=== PATIENT | female | born 1960 | race American Indian/Alaskan Native ===

== ENCOUNTER 2017-01-16 12:51 | Emergency (ER) | payer OTHER ==
[2017-01-16 13:05] VITALS: BP 140/82; PULSE 98; RESP 18; TEMP 98.3; O2SAT 98
--- NOTE | 2017-01-16 14:05 | ED PDOC ---
Upper Extremity Pain/Injury Time Seen by Provider: 01/16/17 13:09 Chief Complaint (Nursing): Finger,Hand,&Wrist History Per: Patient History/Exam Limitations: no limitations Onset/Duration Of Symptoms: Days (x 1 week) Additional Complaint(s): Shreya Pyle is a 56 year old female, with a previous medical history of arthritis, who presents to the ED with complaints of swelling and pain to the right ring ongoing for the past week. Patient states she does not recall sustaining an injury to the finger. She denies any numbness, tingling or weakness of the finger. PMD: none provided Past Medical History Reviewed: Historical Data, Nursing Documentation, Vital Signs Vital Signs: Last Vital Signs Temp 98.3 F 01/16/17 13:02 Pulse 98 H 01/16/17 13:02 Resp 18 01/16/17 13:02 BP 140/82 01/16/17 13:02 Pulse Ox 98 01/16/17 13:02 - Medical History PMH: Arthritis - Surgical History Surgical History: No Surg Hx - Family History Family History: States: Unknown Family Hx - Home Medications Home Medications: Ambulatory Orders Medication Instructions Recorded Nabumetone [Relafen] 500 mg PO BID #20 tab 03/22/15 Tramadol Hydrochloride [Tramadol] 1 tab PO Q6H PRN #15 tab 03/22/15 Clindamycin [Cleocin] 300 mg PO QID #40 cap 01/16/17 - Allergies Allergies/Adverse Reactions: Allergies Allergy/AdvReac Type Severity Reaction Status Date / Time No Known Allergies Allergy Verified 03/28/15 09:33 Review of Systems ROS Statement: Except As Marked, All Systems Reviewed And Found Negative Musculoskeletal: Positive for: Hand Pain (right ring finger pain and swelling ) Neurological: Negative for: Numbness, Other (tingling ) Physical Exam - Reviewed Nursing Documentation Reviewed: Yes Vital Signs Reviewed: Yes - Physical Exam Appears: Positive for: Well, Non-toxic, No Acute Distress Pulses-Radial (R): 2+ Extremity: Positive for: Normal ROM (patient is able to fully extend the finger ), Tenderness (of the finger but non tender to the palmar surface of the finger) , Capillary Refill (< 2 seconds ), Swelling (localized edema to the distal finger and around the lateral nail fold ). Negative for: Deformity Neurologic/Psych: Positive for: Alert, Oriented - ECG O2 Sat by Pulse Oximetry: 98 (RA) Pulse Ox Interpretation: Normal Medical Decision Making Medical Decision Making: Initial Impression: finger pain Initial Plan: * physical exam * disposition Scribe Attestation: Documented by Maryanne Sherman, acting as a scribe for Rosario Shin PA-C. Provider Scribe Attestation: All medical record entries made by the Scribe were at my direction and personally dictated by me. I have reviewed the chart and agree that the record accurately reflects my personal performance of the history, physical exam, medical decision making, and the department course for this patient. I have also personally directed, reviewed, and agree with the discharge instructions and disposition. Disposition - Clinical Impression Clinical Impression: [facility] - Patient ED Disposition Is Patient to be Admitted: No Doctor Will See Patient In The: Office Counseled Patient/Family Regarding: Studies Performed, Diagnosis, Need For Followup - Disposition Referrals: [facility] [Outside] Disposition: Routine/Home Condition: STABLE Additional Instructions: Warm soaks. Prescriptions: Clindamycin [Cleocin] 300 mg PO QID #40 cap Instructions: [place] (ED) Forms: [facility] ED School/Work Excuse
== END 2017-01-16 14:24 | disposition home or self-care (01) ==
LOC: H.ER 12:51
DX: L03.011 Cellulitis of right finger (principal)

== ENCOUNTER 2018-08-11 16:55 | Emergency (ER) | payer OTHER ==
[2018-08-11 17:23] VITALS: BP 144/75; PULSE 77; RESP 18; TEMP 98.4; O2SAT 99
[2018-08-11] MEDS ORDERED: Tdap Vaccine 0.5 ml Vial (10-64 yrs) IM ONE (18:33)
[2018-08-11] MEDS ORDERED: Naproxen 500 MG TAB PO STA (18:33)
[2018-08-11] MEDS ORDERED: Bacitracin OINT 15GM TOP STA (18:33)
[2018-08-11] MEDS ORDERED: Bacitracin 500 Units/gm Oint Foilpak UD ONE (18:42)
--- NOTE | 2018-08-11 19:26 | ED PDOC ---
Upper Extremity Pain/Injury Time Seen by Provider: 08/11/18 17:13 Chief Complaint (Nursing): Finger,Hand,&Wrist Chief Complaint (Provider): Left 3rd digit injury History Per: Patient History/Exam Limitations: no limitations Onset/Duration Of Symptoms: Days (x1 month) Current Symptoms Are (Timing): Still Present Quality: "Pain" Additional Complaint(s): 57 year old female who is right hand dominant presents to the ED for an evaluation of left 3rd digit injury. Patient states she cut herself with a knife one month ago while cutting food at home. Patient did not seek evaluation for the injury at the time and the symptoms improved spontaneously until this week. Patient has noticed increased pain x5 days to the wound site. Her Tetanus is not UTD. Otherwise, patient denies fever, wound drainage, swelling to affected digit, or any other complaints. PMD: no family provider Past Medical History Reviewed: Historical Data, Nursing Documentation, Vital Signs Vital Signs: Last Vital Signs Temp 98.4 F 08/11/18 17:21 Pulse 77 08/11/18 17:21 Resp 18 08/11/18 17:21 BP 144/75 08/11/18 17:21 Pulse Ox 99 08/11/18 17:21 - Medical History PMH: Arthritis - Family History Family History: States: Unknown Family Hx - Home Medications Home Medications: Ambulatory Orders Medication Instructions Recorded Nabumetone [Relafen] 500 mg PO BID #20 tab 03/22/15 Tramadol Hydrochloride [Tramadol] 1 tab PO Q6H PRN #15 tab 03/22/15 RX: Clindamycin [Cleocin] 300 mg PO QID #40 cap 01/16/17 Cephalexin [Keflex] 500 mg PO TID #21 capsule 08/11/18 RX: Bacitracin Ointment 1 applic TOP BID #1 tube 08/11/18 [Bacitracin] RX: Naproxen 500 mg PO BID PRN #20 tab 08/11/18 - Allergies Allergies/Adverse Reactions: Allergies Allergy/AdvReac Type Severity Reaction Status Date / Time No Known Allergies Allergy Verified 08/11/18 17:20 Review of Systems ROS Statement: Except As Marked, All Systems Reviewed And Found Negative Constitutional: Negative for: Fever Cardiovascular: Negative for: Chest Pain Respiratory: Negative for: Cough, Shortness of Breath Gastrointestinal: Negative for: Nausea, Vomiting Musculoskeletal: Positive for: Other (left 3rd digit injury ) Physical Exam - Reviewed Nursing Documentation Reviewed: Yes Vital Signs Reviewed: Yes - Physical Exam Comments: GENERAL APPEARANCE: Patient is awake, alert, oriented x 3, in no acute distress. SKIN: Warm, dry; (-) cyanosis. NECK: Supple CHEST AND RESPIRATORY: (-) rales, (-) rhonchi, (-) wheezes; breath sounds equal bilaterally. Respirations even and nonlabored. HEART AND CARDIOVASCULAR: (-) irregularity UPPER EXTREMITY: (+) distal aspect of left 3rd digit there is 1cm by .5cm healed superficial skin avulsion with partial distal 3mm nail involvement. (+) tenderness. (+) full ROM of all digits, sensation and capillary refill intact, remainder of the hand is non-tender with full ROM (-) erythema, warmth, drainage, edema, ecchymosis.(-) distal neurovascular deficit. NEURO AND PSYCH: Mental status as above. Gait: steady. Speech: clear. (-) facial asymmetry - ECG O2 Sat by Pulse Oximetry: 99 (RA) Pulse Ox Interpretation: Normal Medical Decision Making Medical Decision Making: Time: 1829 Initial impression: wound check, possible wound infection Initial plan: Tetanus 0.5ml Bacitracin Ointment Keflex 500mg Naproxen 500mg Reevaluation 2019 On re-evaluation, patient reports improvement of symptoms. On exam, patient remains AAOx3, in no acute distress. Vitals stable. Lab/Diagnostic results d/w the patient in great detail. Diagnosis of acute finger pain, skin avulsion d/w the patient. Based on history, exam and diagnostic results, plan will be for outpatient follow up with PMD/clinic/hand. Patient instructed to follow-up with pmd / referral provided / the clinic in 1- 2 days without fail. Advised to take medication as prescribed. Return to the emergency room at any time for any new or worsening symptoms. Patient states she fully agrees with and understands discharge instructions. States that she agrees with the plan and disposition. Verbalized and repeated discharge instructions and plan. I have given the patient opportunity to ask any additional questions. -- Scribe Attestation: Documented by Shama Mcclain, acting as a scribe for Trupti Leija PA-C. Provider Scribe Attestation: All medical record entries made by the Scribe were at my direction and personally dictated by me. I have reviewed the chart and agree that the record accurately reflects my personal performance of the history, physical exam, medical decision making, and the department course for this patient. I have also personally directed, reviewed, and agree with the discharge instructions and disposition. Disposition - Clinical Impression Clinical Impression: Visit for wound check, Avulsion of skin of finger, Finger pain, Wound infection - Patient ED Disposition Is Patient to be Admitted: No Counseled Patient/Family Regarding: Studies Performed, Diagnosis, Need For Followup, Rx Given - Disposition Referrals: [facility] [Outside] Marylu Baez MD [Staff Provider] - Disposition: Routine/Home Disposition Time: 20:20 Condition: STABLE Additional Instructions: The emergency medical care you received today was directed at your acute symptoms. If you were prescribed any medication, please fill it and take as directed. It may take several days for your symptoms to resolve. Return to the Emergency Department if your symptoms worsen, do not improve, or if you have any other problems. Please contact your doctor in 2 days for re-evaluation and follow up / or call one of the physicians/clinics you have been referred to that are listed on the Patient Visit Information form that is included in your discharge packet. Bring any paperwork you were given at discharge with you along with any medications you are taking to your follow up visit. Our treatment cannot replace ongoing medical care by a primary care provider (PCP) outside of the emergency department. Prescriptions: RX: Bacitracin Ointment [Bacitracin] 1 applic TOP BID #1 tube Cephalexin [Keflex] 500 mg PO TID #21 capsule RX: Naproxen 500 mg PO BID PRN #20 tab PRN Reason: Pain, Moderate (4-7) Instructions: Wound Care, Common Finger Injuries (DC), Wound Infection Forms: [employer] ([place]) Print Language: [place]AN - POA Present On Arrival: None
== END 2018-08-11 20:29 | disposition home or self-care (01) ==
LOC: H.ER 16:55
DX: M79.645 Pain in left finger(s) (principal); L08.9 Local infection of the skin and subcutaneous tissue, unspecified; Z48.01 Encounter for change or removal of surgical wound dressing

== ENCOUNTER 2018-09-16 13:45 | Emergency (ER) | payer OTHER ==
[2018-09-16 14:20] VITALS: PULSE 75
--- NOTE | 2018-09-16 15:03 | ED PDOC ---
HPI: Female Pain Time Seen by Provider: 09/16/18 14:26 Chief Complaint (Nursing): Female Genitourinary Chief Complaint (Provider): Female Genitourinary History Per: Patient History/Exam Limitations: no limitations Onset/Duration Of Symptoms: Days (x6) Current Symptoms Are (Timing): Still Present Additional Complaint(s): Patient is a 57 y/o female with a PMHx of arthritis who presents to the ED for evaluation of vaginal bleeding, onset 09/11/18. Patient is five years post- menopausal. experiencing vaginal spotting that resolved spontaneously and recurred yesterday and resolved again. Patient admits to vaginal irritation and itchiness. Patient denies dysuria, hematuria, frequency, abdominal pain, nausea, vomiting, rectal bleeding, and any other bleeding. Of note, patient has a history of two vaginal deliveries. PCP: None Provided Past Medical History Reviewed: Historical Data, Nursing Documentation, Vital Signs Vital Signs: Last Vital Signs Temp 97.4 F L 09/16/18 14:18 Pulse 75 09/16/18 14:18 Resp 16 09/16/18 14:18 BP 136/82 09/16/18 14:18 Pulse Ox 98 09/16/18 14:18 - Medical History PMH: Arthritis Denies: Fibromyalgia Other PMH: Denies Ovarian Cysts - Surgical History Surgical History: No Surg Hx - Family History Family History: States: No Known Family Hx - Social History Current smoker - smoking cessation education provided: No - Home Medications Home Medications: Ambulatory Orders Medication Instructions Recorded Nabumetone [Relafen] 500 mg PO BID #20 tab 03/22/15 Tramadol Hydrochloride [Tramadol] 1 tab PO Q6H PRN #15 tab 03/22/15 Clindamycin [Cleocin] 300 mg PO QID #40 cap 01/16/17 Bacitracin Ointment [Bacitracin] 1 applic TOP BID #1 tube 08/11/18 Cephalexin [Keflex] 500 mg PO TID #21 capsule 08/11/18 Naproxen 500 mg PO BID PRN #20 tab 08/11/18 - Allergies Allergies/Adverse Reactions: Allergies Allergy/AdvReac Type Severity Reaction Status Date / Time No Known Allergies Allergy Verified 09/16/18 14:18 Review of Systems ROS Statement: Except As Marked, All Systems Reviewed And Found Negative (as per HPI) Gastrointestinal: Negative for: Nausea, Vomiting, Abdominal Pain, Rectal Pain (or bleeding) Genitourinary Female: Positive for: Vaginal Bleeding, Other (Vaginal Irritation and Itchiness). Negative for: Dysuria, Frequency, Hematuria, Vaginal Discharge Physical Exam - Reviewed Nursing Documentation Reviewed: Yes Vital Signs Reviewed: Yes - Physical Exam Appears: Positive for: Well, No Acute Distress Head Exam: Positive for: ATRAUMATIC, NORMAL INSPECTION, NORMOCEPHALIC Skin: Positive for: Warm, Dry. Negative for: Pallor Neck: Positive for: Painless ROM, Supple Gastrointestinal/Abdominal: Positive for: Soft. Negative for: Tenderness, Mass, Guarding, Rebound Pelvic Exam: Positive for: External Exam Normal, Other (White, thin physiologic discharge; no cervix abnormalities). Negative for: Active Bleeding, Blood Back: Negative for: L CVA Tenderness, R CVA Tenderness Extremity: Positive for: Normal ROM. Negative for: Deformity Neurologic/Psych: Positive for: Alert. Negative for: Motor/Sensory Deficits - ECG O2 Sat by Pulse Oximetry: 98 (RA) Pulse Ox Interpretation: Normal Medical Decision Making Medical Decision Making: Time: 1442 Impression: Post-menopausal vaginal bleeding. Plan: Chylamydia/GC RNA, TMA Urine Culture UA Transvaginal [US] Time: 1639 FINDINGS: UTERUS: Measures 8.6 x 7.4 x 7.9 cm. Heterogeneous echotexture. Retroverted. Multiple uterine fibroids. Largest fibroid is right intramural, 2.7 x 3.0 x 3.6 cm. Also anterior intramural, 2.7 x 3.7 x 4.3 cm. Fundal subserosal fibroid, 1.4 x 1.8 x 2.1 cm. ENDOMETRIUM: Measures 6 mm in diameter. Unremarkable. CERVIX: No cervical abnormality identified. RIGHT OVARY: Not visualized LEFT OVARY: Not visualized FREE FLUID: No significant free fluid noted. OTHER FINDINGS: None. IMPRESSION: Multiple uterine fibroids. Retroverted uterus. Ovaries not visualized. Time: 1706 Urinalysis demonstrates only RBC. Discussed findings with patient. Patient stable for discharge. Mandatory clinic followup required by the end of the week. Scribe Attestation: Documented by Dk Aiken, acting as a scribe for provider Mayra Avendano MD. All medical record entries made by the Scribe were at my direction and personally dictated by me. I have reviewed the chart and agree that the record accurately reflects my personal performance of the history, physical exam, medical decision making, and the department course for this patient. I have also personally directed, reviewed, and agree with the discharge instructions and disposition. Disposition - Clinical Impression Clinical Impression: Vaginal bleeding, Fibroid - Patient ED Disposition Is Patient to be Admitted: No Counseled Patient/Family Regarding: Studies Performed, Diagnosis, Need For Followup - Disposition Referrals: [facility] [Outside] (CALL [facility] FOR ASSISTANCE WITH SCHEDULING FOLLOWUP APPOINTMENT) [facility] [Outside] - 09/17/18 (FOLLOWUP AT CLINIC BY THE END OF THE WEEK FOR FURTHER WORKUP. YOU WILL NEED YOUR REGULAR PAP SMEAR AND THEN AN ENDOMETRIAL BIOPSY) Disposition: Routine/Home Disposition Time: 17:10 Condition: STABLE Instructions: Uterine Fibroids (DC), Bleeding After Menopause - POA Present On Arrival: None
[2018-09-16 15:09] LABS: SQUAMOUS EPITHIAL 3 /hpf (0-5); URINE BACTERIA RARE (<OCC); URINE BILIRUBIN NEGATIVE (NEGATIVE); URINE BLOOD MODERATE (NEGATIVE); URINE CLARITY SLIGHTY-CLOUDY (Clear); URINE COLOR YELLOW (YELLOW); URINE GLUCOSE (UA) NEG (NEGATIVE); URINE LEUKOCYTE ESTERASE NEG Leu/uL (Negative); URINE PROTEIN 30 mg/dL (NEGATIVE); URINE UROBILINOGEN 0.2-1.0 mg/dL (0.2-1.0)
--- NOTE | 2018-09-16 16:43 | US ---
Date of service: 09/16/2018 HISTORY: vaginal bleed postmenopausal COMPARISON: None available. TECHNIQUE: Transvaginal FINDINGS: UTERUS: Measures 8.6 x 7.4 x 7.9 cm. Heterogeneous echotexture. Retroverted. Multiple uterine fibroids. Largest fibroid is right intramural, 2.7 x 3.0 x 3.6 cm. Also anterior intramural, 2.7 x 3.7 x 4.3 cm. Fundal subserosal fibroid, 1.4 x 1.8 x 2.1 cm. ENDOMETRIUM: Measures 6 mm in diameter. Unremarkable. CERVIX: No cervical abnormality identified. RIGHT OVARY: Not visualized LEFT OVARY: Not visualized FREE FLUID: No significant free fluid noted. OTHER FINDINGS: None. IMPRESSION: Multiple uterine fibroids. Retroverted uterus. Ovaries not visualized.
[2018-09-16 17:22] VITALS: BP 144/78; RESP 18; TEMP 98.3
[2018-09-16 17:31] VITALS: O2SAT 98
== END 2018-09-16 17:31 | disposition home or self-care (01) ==
LOC: H.ER 13:45
DX: N93.9 Abnormal uterine and vaginal bleeding, unspecified (principal); D25.9 Leiomyoma of uterus, unspecified; N85.4 Malposition of uterus; Z78.0 Asymptomatic menopausal state